=== PATIENT | female | born 1980 | race Caucasian/White ===

== ENCOUNTER 2018-05-28 07:36 | Emergency (ER) | payer BC ==
--- NOTE | 2018-05-28 07:45 | EDM.PDOC ---
ED HPI GENERAL MEDICAL PROBLEM - General Chief Complaint: Headache Stated Complaint: BAD HEADACHE Time Seen by Provider: 05/28/18 07:42 Source of Information: Reports: Patient, Old Records, RN, RN Notes Reviewed History Limitations: Reports: No Limitations - History of Present Illness INITIAL COMMENTS - FREE TEXT/NARRATIVE: Pt presents from home by POV with c/o a severe migraine headache. Pt reports Hx of MS and migraines. Pt was seen here in the ER on 05/24/18 with a headache and nausea, vomiting, and diarrhea. She states that she was having fever and chills last week, associated with a "stomach flu" but hasn't had a fever for several days now. Pt states her MS is right side predominant but this week her left foot turns out randomly. She continues to have nausea and loss of appetite. The headache is described as a severe occipital ache which feels that her head will burst with coughing or vomiting. She admits to mild photophobia and some aching and throbbing all around that head as well. Denies visual changes, slurred speech, or difficulty swallowing. She does feel that her MS related right sided weakness is worse than usual this week. Duration: Week(s): (1), Constant Location: Reports: Head Quality: Reports: Ache, Same as Previous Episode, Throbbing Severity: Severe Improves with: Reports: None Worsens with: Reports: Movement (Cough, Vomiting) Associated Symptoms: Reports: No Other Symptoms Treatments [employer]SULTANT: Reports: Other Medication(s) Head Pain Score (Numeric/FACES): 10 - Related Data Allergies Allergy/AdvReac Type Severity Reaction Status Date / Time No Known Allergies Allergy Verified 05/28/18 07:41 Home Meds: Home Meds Fingolimod HCl [Gilenya] 0.5 mg PO DAILY 05/09/15 [History] PARoxetine [Paxil] 10 mg PO DAILY 05/09/15 [History] Past Medical History Respiratory History: Reports: Other (See Below) (Chronic tobacco smoker) Musculoskeletal History: Reports: Other (See Below) Other Musculoskeletal History: Hx of MS Neurological History: Reports: MS Psychiatric History: Reports: Anxiety, Depression Social & Family History - Family History Family Medical History: Noncontributory - Tobacco Use Smoking Status *Q: Current Every Day Smoker Tobacco Use Within Last Twelve Months: Cigarettes - Caffeine Use Caffeine Use: Reports: Coffee, Soda - Living Situation & Occupation Living situation: Reports: with Family ED ROS GENERAL - Review of Systems Review Of Systems: ROS reveals no pertinent complaints other than HPI. - Physical Exam Exam: See Below Exam Limited By: No Limitations General Appearance: Alert, WD/WN, No Apparent Distress Eye Exam: Bilateral Eye: EOMI, Normal Inspection, PERRL Ears: Normal External Exam, Normal Canal, Hearing Grossly Normal, Normal TMs Nose: Normal Inspection, Normal Mucosa, No Blood Throat/Mouth: Normal Lips, Normal Teeth, Normal Gums, Normal Oropharynx, Normal Voice, No Airway Compromise, Other (Very dry oral membranes) Head Exam: Atraumatic, Normocephalic. No: Scalp Tenderness Neck: Full Range of Motion, Other (Mild cervical paraspinal soft tissue tenderness at the occipital jct. region. No nuchal rigidity.). No: Lymphadenopathy (L), Lymphadenopathy (R) Respiratory/Chest: No Respiratory Distress, Lungs Clear, Normal Breath Sounds, No Accessory Muscle Use, Chest Non-Tender Cardiovascular: Regular Rate, Rhythm, No Edema GI/Abdominal: Normal Bowel Sounds, Soft, Non-Tender, No Distention Neuro Exam (Abbreviated): Alert, Oriented, CN II-XII Intact, Normal Cognition, Normal Gait, No Motor/Sensory Deficits Back Exam: Normal Inspection, Full Range of Motion, NT Extremities: Normal Inspection, Normal Range of Motion, Non-Tender, No Pedal Edema, Normal Capillary Refill Psychiatric: Normal Affect, Normal Mood Skin Exam: Warm, Dry, Intact, Normal Color, No Rash Course - Vital Signs Last Recorded V/S: Last Vital Signs Temp 36.8 C 05/28/18 07:39 Pulse 98 05/28/18 07:39 Resp 16 05/28/18 07:39 BP 134/98 H 05/28/18 07:39 Pulse Ox 98 05/28/18 07:39 - Orders/Labs/Meds Orders: Active Orders 24 hr Category Date Time Status Peripheral IV Care [RC] . DIRECTED Care 05/28/18 07:54 Active HCG QUALITATIVE,URINE [URCHEM] Stat Lab 05/28/18 07:53 Ordered UA RFX KESHIA AND CULT IF INDIC [URIN] Stat Lab 05/28/18 07:53 Ordered Sodium Chloride 0.9% [Saline Flush] Med 05/28/18 07:54 Active 10 ml FLUSH ASDIRECTED PRN Peripheral IV Insertion Adult [OM.PC] Stat Oth 05/28/18 07:53 Ordered Medication Orders Sodium Chloride (Saline Flush) 10 ml FLUSH ASDIRECTED PRN PRN Reason: Keep Vein Open Last Admin: 05/28/18 08:10 Dose: 10 ml Labs: Laboratory Tests 05/28/18 05/28/18 05/28/18 Range/Units 08:11 08:11 08:11 WBC 7.9 (5.0-10.0) 10^3/uL RBC 4.52 (4.2-5.4) 10^6/uL Hgb 14.8 D (12.0-16.0) g/dL Hct 43.1 (37.0-47.0) % MCV 95.4 (80-100) fL MCH 32.7 (27.0-34.0) pg MCHC 34.3 (33.0-35.0) g/dL Plt Count 244 (150-450) 10^3/uL Neut % (Auto) 88.4 H (42.2-75.2) % Lymph % (Auto) 3.2 L (20.5-50.1) % [place] % (Auto) 7.8 (2-8) % Eos % (Auto) 0.5 L (1.0-3.0) % Baso % (Auto) 0.1 (0.0-1.0) % Sodium 136 (135-145) mmol/L Potassium 3.2 L (3.6-5.0) mmol/L Chloride 100 L (101-111) mmol/L Carbon Dioxide 22.0 (21.0-31.0) mmol/L Anion Gap 17.2 BUN 15 (7-18) mg/dL Creatinine 0.7 (0.6-1.3) mg/dL Est Cr Clr Drug Dosing 104.93 mL/min Estimated GFR (MDRD) > 60 BUN/Creatinine Ratio 21.42 Glucose 109 H (74-105) mg/dL Calcium 8.2 L (8.4-10.2) mg/dl Magnesium 1.8 (1.8-2.5) mg/dL Total Bilirubin 0.6 (0.2-1.0) mg/dL AST 21 (10-42) IU/L ALT 20 (10-60) IU/L Alkaline Phosphatase 58 (42-121) IU/L C-Reactive Protein 0.8 (0.0-1.3) mg/dL Total Protein 6.7 (6.7-8.2) g/dl Albumin 3.8 (3.2-5.5) g/dl Globulin 2.9 Albumin/Globulin Ratio 1.31 Meds: Medications Generic Name Dose Route Start Last Admin Trade Name Freq PRN Reason Stop Dose Admin Sodium Chloride 10 ml 05/28/18 07:54 05/28/18 08:10 Saline Flush FLUSH 10 ml ASDIRECTED PRN Administration Keep Vein Open Discontinued Medications Generic Name Dose Route Start Last Admin Trade Name Freq PRN Reason Stop Dose Admin Hydromorphone HCl 1 mg 05/28/18 07:55 05/28/18 08:16 Dilaudid IVPUSH 05/28/18 07:56 1 mg ONETIME ONE Administration Sodium Chloride 1,000 mls @ 999 mls/hr 05/28/18 07:54 05/28/18 08:13 Normal Saline IV 05/28/18 08:54 999 mls/hr .BOLUS ONE Administration Ketorolac Tromethamine 30 mg 05/28/18 08:20 05/28/18 08:27 Toradol IVPUSH 05/28/18 08:21 30 mg ONETIME ONE Administration Ondansetron HCl 4 mg 05/28/18 07:54 05/28/18 08:13 Zofran IV 05/28/18 07:55 4 mg ONETIME ONE Administration - Re-Assessments/Exams Free Text/Narrative Re-Assessment/Exam: 05/28/18 08:14 I consulted neurology via [facility]. Dr. Orlando advises to tx the pt symptomatically for pain and nausea control, IV fluids, and to have the pt call Dr. Celis tomorrow morning for recheck and further evaluation and treatment if necessary. She did not feel that high dose steroid tx needed to be initiated for MS flare at this time. Free Text/Narrative Re-Assessment/Exam: 05/28/18 09:02 Pt feels improved and would like to be d/c'd to home. She agrees to call Dr. Celis for f/u tomorrow morning. Departure - Departure Time of Disposition: 09:03 Disposition: Home, Self-Care 01 Condition: Good Clinical Impression: Dehydration, Hypokalemia Headache Qualifiers: Headache type: other headache syndrome Qualified Code(s): G44.89 - Other headache syndrome - Discharge Information *PRESCRIPTION DRUG MONITORING PROGRAM REVIEWED*: No *COPY OF PRESCRIPTION DRUG MONITORING REPORT IN PATIENT BLADIMIR: No Instructions: General Headache Without Cause, Dehydration, Adult, [id number] , Potassium Content of Foods Forms: ED Department Discharge Additional Instructions: Rx: [place] 5mg/325mg *Do not drive or work while under the influence of this medication. Rx: Toradol 10mg *Take with food. Rx: Promethazine 25mg *Do not drive or work while under the influence of this medication. High potassium diet (eat bananas) Drink plenty of water. Call Dr. Celis tomorrow for recheck. Return to ER if worse at any time. - My Orders Last 24 Hours: My Active Orders 05/28/18 07:53 HCG QUALITATIVE,URINE [URCHEM] Stat UA RFX KESHIA AND CULT IF INDIC [URIN] Stat Peripheral IV Insertion Adult [OM.PC] Stat 05/28/18 07:54 Peripheral IV Care [RC] . DIRECTED Sodium Chloride 0.9% [Saline Flush] 10 ml FLUSH ASDIRECTED PRN - Assessment/Plan Last 24 Hours: My Active Orders 05/28/18 07:53 HCG QUALITATIVE,URINE [URCHEM] Stat UA RFX KESHIA AND CULT IF INDIC [URIN] Stat Peripheral IV Insertion Adult [OM.PC] Stat 05/28/18 07:54 Peripheral IV Care [RC] . DIRECTED Sodium Chloride 0.9% [Saline Flush] 10 ml FLUSH ASDIRECTED PRN
[2018-05-28 07:53] VITALS: BP 134/98
[2018-05-28] MEDS ORDERED: Ondansetron 4 MG/2 ML SDV IV ONE (07:54)
[2018-05-28] MEDS ORDERED: Sodium Chloride 0.9% 10 ML Syringe FLUSH PRN (07:54)
[2018-05-28] MEDS ORDERED: Sodium Chloride 0.9% 1,000 ML IV ONE (07:54)
[2018-05-28] MEDS ORDERED: HYDROmorphone 1 MG/ML Syringe IVPUSH ONE (07:55)
[2018-05-28] MEDS ORDERED: Ketorolac 30 MG/ML SDV IVPUSH ONE (08:20)
[2018-05-28 08:38] LABS: ANION GAP 17.2; CHLORIDE,CL 100 mmol/L (101-111); SODIUM,NA 136 mmol/L (135-145)
== END 2018-05-28 09:24 | disposition home or self-care (01) ==
LOC: DL.ED 07:36
DX: G44.89 Other headache syndrome (principal); E87.6 Hypokalemia; E86.0 Dehydration; G35 Multiple sclerosis; F17.210 Nicotine dependence, cigarettes, uncomplicated; Z79.899 Other long term (current) drug therapy
CPT/HCPCS: 36415; 80053; 83735; 85025; 86140; 96361; 96374; 96375; 99283; J1170; J1885; J2405; J7030

== ENCOUNTER 2020-02-10 19:06 | Emergency (ER) | payer BC ==
[2020-02-10 19:21] VITALS: BP 127/87; PULSE 76
[2020-02-10] MEDS ORDERED: Gentamicin 0.3% Ophth Soln 5 ML Bottle ONE (19:28)
--- NOTE | 2020-02-10 19:28 | EDM.PDOC ---
ED HPI GENERAL MEDICAL PROBLEM - General Chief Complaint: Eye Problems Stated Complaint: EYE INFECTION Time Seen by Provider: 02/10/20 19:23 Source of Information: Reports: Patient History Limitations: Reports: No Limitations - History of Present Illness INITIAL COMMENTS - FREE TEXT/NARRATIVE: started today Left Upper Eyelid Pain Score (Numeric/FACES): 7 - Related Data Allergies Allergy/AdvReac Type Severity Reaction Status Date / Time No Known Allergies Allergy Verified 02/10/20 19:15 Home Meds: Home Meds Fingolimod HCl [Gilenya] 0.5 mg PO DAILY 05/09/15 [History] PARoxetine [Paxil] 10 mg PO DAILY 05/09/15 [History] Past Medical History Respiratory History: Reports: Other (See Below) (Chronic tobacco smoker) Musculoskeletal History: Reports: Other (See Below) Other Musculoskeletal History: Hx of MS Neurological History: Reports: MS Psychiatric History: Reports: Anxiety, Depression Social & Family History - Family History Family Medical History: Noncontributory - Caffeine Use Caffeine Use: Reports: Coffee, Soda - Living Situation & Occupation Living situation: Reports: with Family ED ROS GENERAL - Review of Systems Review Of Systems: Comprehensive ROS is negative, except as noted in HPI. ED EXAM GENERAL W FULL EYE - Physical Exam Exam: See Below Exam Limited By: No Limitations General Appearance: Alert, WD/WN, No Apparent Distress Eye Exam: Left Eye: Conjunctival Injection Eyelids: Left: Edema, Erythema, Stye (minimal) Conjunctiva & Sclera: Left: Injected Cornea Exam: Bilateral: Normal Appearance Extraocular Movements: Bilateral: Intact Pupillary Size: Bilateral: 5 mm Pupillary Reaction: Bilateral: Brisk Anterior Chamber: Bilateral: Normal Appearance Ears: Hearing Grossly Normal Throat/Mouth: Normal Voice, No Airway Compromise Head: Atraumatic Neck: Non-Tender, Full Range of Motion Respiratory/Chest: No Respiratory Distress Cardiovascular: Regular Rate, Rhythm GI/Abdominal: Soft, Non-Tender (Male) Exam: Deferred (Female) Exam: Deferred Rectal (Males) Exam: Deferred Neurological: Alert, Oriented, Normal Cognition, Normal Gait, No Motor/Sensory Deficits Psychiatric: Normal Affect, Normal Mood Skin Exam: Warm, Dry, Normal Color Lymphatic: No Adenopathy Course - Vital Signs Last Recorded V/S: Last Vital Signs Temp 36.2 C 09/20/20 19:19 Pulse 76 02/10/20 19:19 Resp 18 02/10/20 19:19 BP 127/87 02/10/20 19:19 Pulse Ox 99 02/10/20 19:19 Departure - Departure Time of Disposition: 19:28 Disposition: Home, Self-Care 01 Condition: Good Clinical Impression: Conjunctivitis Qualifiers: Conjunctivitis type: unspecified Laterality: left Qualified Code(s): H10.9 - Unspecified conjunctivitis Stye Qualifiers: Laterality: left Eyelid: upper Qualified Code(s): H00.014 - Hordeolum externum left upper eyelid - Discharge Information Instructions: Stye Additional Instructions: 1) don't rub eye 2) keep hands clean 3) see EYE CLINIC if no improvement within 48 hours rx togo; gentamycin eye drops 2 drops q 4-6 x 5 days Sepsis Event Note (ED) - Evaluation Sepsis Screening Result: No Definite Risk - Focused Exam Vital Signs: Vital Signs Temp Pulse Resp BP Pulse Ox 02/10/20 19:19 36.2 C 76 18 127/87 99
== END 2020-02-10 19:34 | disposition home or self-care (01) ==
LOC: DL.ED 19:06
DX: H10.9 Unspecified conjunctivitis (principal); H00.014 Hordeolum externum left upper eyelid; G35 Multiple sclerosis; F32.9 Major depressive disorder, single episode, unspecified; F41.9 Anxiety disorder, unspecified; F17.200 Nicotine dependence, unspecified, uncomplicated; Z79.899 Other long term (current) drug therapy
CPT/HCPCS: 99283; A9270

== ENCOUNTER 2023-08-08 20:51 | Emergency (ER) | payer BC ==
[2023-08-08 21:23] LABS: HEMOGLOBIN 10.8 g/dL (12.0-16.0); MEAN CORPUSCULAR HEMOGLOBIN 33.9 pg (27.0-34.0); MEAN CORPUSCULAR HGB CONC 32.7 g/dL (33.0-35.0); MEAN CORPUSCULAR VOLUME 103.4 fL (80-100); PLATELET COUNT,PLT 85 10^3/uL (150-450); RED BLOOD CELL COUNT 3.19 10^6/uL (4.2-5.4); WHITE BLOOD CELL COUNT,WBC 34.9 10^3/uL (5.0-10.0)
[2023-08-08] MEDS: Sodium Chloride 0.9% 1,000 ML IV ONE ×2 (21:28→21:52)
[2023-08-08 21:39] LABS: APPEARANCE,URINE CLEAR (CLEAR); BILIRUBIN,URINE MODERATE (NEGATIVE); COLOR,URINE YELLOW (YELLOW); GLUCOSE,URINE NEGATIVE (NEGATIVE); KETONES,URINE 15 (NEGATIVE); LEUKOCYTE ESTERASE,URINE NEGATIVE (NEGATIVE); NITRITE,URINE NEGATIVE (NEGATIVE); OCCULT BLOOD,URINE TRACE-INTACT (NEGATIVE); PROTEIN,URINE 100 (NEGATIVE)
[2023-08-08] MEDS: Iopamidol 755 Mg/ML 100 ML Bottle IVPUSH ONE (21:46)
[2023-08-08 21:47] VITALS: BP 101/65; PULSE 110
[2023-08-08 21:47] LABS: ALBUMIN 2.7 g/dL (3.4-5.0); ANION GAP 19.7 mEq/L (7-13); BILIRUBIN TOTAL 0.4 mg/dL (0.2-1.0); BUN/CREATININE RATIO 30.8 (No establ ref range); C-REACTIVE PROTEIN 9.14 ng/dL (<=0.50); CALCIUM 7.8 mg/dL (8.5-10.1); CREATININE 0.65 mg/dL (0.55-1.02); EST CRCL DRUG DOSING (CG) 107.4 mL/min; MAGNESIUM 1.8 mg/dL (1.8-2.4); POTASSIUM,K 3.7 mmol/L (3.5-5.1); PROTEIN TOTAL,TP 5.9 g/dL (6.4-8.2)
[2023-08-08] MEDS: Vancomycin 1.5 GM in Sodium Chloride 0.9% 500 ML IV ONE (21:48)
[2023-08-08] MEDS: Piperacillin/Tazobactam 4.5 GM in Sodium Chloride 0.9% 100 ML IV ONE (21:48)
[2023-08-08] MEDS: Ondansetron 4 MG/2 ML SDV IVPUSH ONE (21:48)
[2023-08-08] MEDS: Sodium Chloride 0.9% 10 ML Syringe FLUSH PRN (21:50)
[2023-08-08 21:54] LABS: A/G RATIO 0.84
[2023-08-08 21:57] LABS: BACTERIA,URINE FEW /HPF (0-FEW/HPF); EPITHELIAL CELLS,URINE FEW /HPF (NOT SEEN); HYALINE CASTS,URINE FEW; MUCUS,URINE MODERATE /LPF (NOT SEEN); RBC,URINE 0-5 /HPF (0-5)
[2023-08-08 22:00] LABS: CORONAVIRUS COVID-19 NAA NEGATIVE (NEGATIVE); INFLUENZA A NAA NEGATIVE (NEGATIVE); INFLUENZA B NAA NEGATIVE (NEGATIVE)
[2023-08-08] MEDS: Ketorolac 30 MG/ML SDV IVPUSH ONE (22:03)
[2023-08-08 22:08] LABS: LYMPHOCYTES PERCENT MAN 8 % (20-50); MONOCYTES PERCENT MAN 8 % (2-8); NRBC MANUAL 11 /100WBC; SEG NEUTROPHILS PERCENT MAN 84 % (42-75); WBC CORRECTED 31.4
== END 2023-08-08 23:07 ==
LOC: DL.ED 20:51
DX: A41.9 Sepsis, unspecified organism (principal); J16.8 Pneumonia due to other specified infectious organisms; Z79.899 Other long term (current) drug therapy
CPT/HCPCS: 0240U; 36415; 51702; 70450; 71275; 80053; 81001; 83605; 83735; 84145; 85025; 86140; 87040; 93005; 93010; 96365; 96367; 96375; 99285; 99285-25; J1885; J2405; J2543; J3370; J3490; J7030; J7040; Q9967